=== PATIENT | male | born 1985 | race Caucasian/White ===

== ENCOUNTER 2024-01-05 15:38 | Emergency (ER) | payer MEDICAID ==
[2024-01-05 15:53] VITALS: BP 134/96; O2SAT 94
--- NOTE | 2024-01-05 16:02 | ED Physician Documentation ---
PD HPI UPPER EXT INJURY - Stated complaint Stated Complaint: RT HAND INJ - Chief complaint Chief Complaint: Laceration - History obtained from History obtained from: Patient - History of Present Illness Location: Right Type of injury: Fall Where injury occurred: Home - Additonal information Additional information: 38-year-old male presents with right hand laceration after falling at home and puncturing the palm of his right hand on a piece of metal fencing. He denies any other injuries. He states bleeding controlled prior to arrival. He is up-to-date on his tetanus. PD PAST MEDICAL HISTORY - Past Medical History Past Medical History: Yes Neuro: Other - Past Surgical History Past Surgical History: Yes Neuro: Other - Present Medications Home Medications: Ambulatory Orders Medication Instructions Recorded Confirmed DULoxetine [Cymbalta] 20 mg PO DAILY 01/05/24 01/05/24 Gabapentin [Neurontin] 600 mg PO Q4HR 01/05/24 01/05/24 - Allergies Allergies/Adverse Reactions: Allergies Allergy/AdvReac Type Severity Reaction Status Date / Time No Known Drug Allergies Allergy Verified 01/05/24 15:45 - Social History Does the pt smoke?: No Smoking Status: Never smoker Does the pt drink ETOH?: No Does the pt have substance abuse?: No Substance Use and Type: Marijuana - Immunizations Immunizations are current?: Yes PD ED PE NORMAL - Vitals Vital signs reviewed: Yes - General General: Alert and oriented X 3, No acute distress, Well developed/nourished - Derm Derm: Normal color, Warm and dry, Other (2 cm laceration on the palmar surface of the right hand just below the fifth MCP joint. 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) Results - Vitals Vitals: Vital Signs - 24 hr 01/05/24 15:42 Temperature 36.6 C Heart Rate 77 Respiratory 20 Rate Blood Pressure 134/96 H O2 Saturation 94 Oxygen O2 Source Room air Procedures - Laceration (location) Hand right Palmar Length in cm: 2 Wound type: Linear, Irregular Neurovascular status: Sensory intact, Motor intact, Vascular intact Tendon involvement: Tendon intact Anesthesia: Lidocaine 1% with epi Wound preparation: Hibiclens, Irrigated copiously NS Skin layer closure: Nylon, Size #-0 - enter number (4), Sutures - enter # (4) Other: Patient tolerated well, No complications, Neurovascular intact, Dressing applied, Tetanus UTD PD Medical Decision Making - ED course Complexity details: d/w patient ED course: 38-year-old male presented with a puncture laceration of his right hand after falling a piece of metal fencing at home. He sustained approximately 2 cm laceration on the palmar surface of the right hand just below the first MCP joint. There is no tendon involvement is good range of motion the hand. I recommended repair given the size of the wound and he verbally consented to proceed. Wound was cleaned and repaired as listed above and patient tolerated very well there was excellent wound edge approximation and hemostasis. Patient is up-to-date on his tetanus and did not require booster today. He was vies of home wound care instructions as well as return precautions. Departure - Departure Disposition: 01 Home, Self Care Clinical Impression: Laceration of right hand Qualifiers: Encounter type: initial encounter Foreign body presence: without foreign body Qualified Code(s): S61.411A - Laceration without foreign body of right hand, initial encounter Condition: Good Instructions: ED Laceration Hand Comments: We placed for sutures in your right hand. These will need to be removed in 7 to 10 days. Please keep the wound dry today but tomorrow you can wash the as you normally would with soap and water and monitor the site for any signs of infection. Return if you develop redness, swelling, purulent drainage, sudden increase in pain or new concerns. Forms: PCP List
== END 2024-01-05 16:22 | disposition home or self-care (01) ==
LOC: ED 15:38
DX: S61.411A Laceration without foreign body of right hand, initial encounter (principal); W19.XXXA Unspecified fall, initial encounter; Y92.009 Unspecified place in unspecified non-institutional (private) residence as the place of occurrence of the external cause
CPT/HCPCS: 12001; 99281